=== PATIENT | female | born 1955 | race Caucasian/White ===

== ENCOUNTER 2019-10-27 12:47 | Outpatient (REF) | payer OTHER, SELFPAY ==
[2019-10-27 22:07] LABS: Anion Gap 7.1 mmol/L (3-11); BUN 22 mg/dL (7-18); CO2 29.9 mmol/L (21.0-32.0); CREATININE 1.36 mg/dL (0.55-1.02); Calcium 8.9 mg/dL (8.5-10.1); Chloride 102 mmol/L (98-107); Estimated GFR 39.15 (mL/min/1.73m2); Glucose 129 mg/dL (74-106); Potassium 4.4 mmol/L (3.5-5.1); Sodium 139 mmol/L (136-145); TSH (W/Ref FT4) 2.35 uIU/mL (0.36-3.74)
[2019-10-27 22:21] LABS: COMMENT (LAB VIEW ONLY) 239.72 mg/dL; Microalb ug/mg Crea 4.2 ug/mg Cr
== END 2019-10-27 13:07 ==
LOC: NCHCN 12:47
PROVIDERS: Visit Provider Nurse Practitioner Community Health
DX: Z00.00 Encounter for general adult medical examination without abnormal findings (principal); E11.9 Type 2 diabetes mellitus without complications; N18.9 Chronic kidney disease, unspecified; Z13.29 Encounter for screening for other suspected endocrine disorder; M25.561 Pain in right knee
CPT/HCPCS: 80048; 82043; 82570; 84443

== ENCOUNTER 2020-05-29 22:54 | Outpatient (REF) | payer MEDICARE, BC, SELFPAY ==
[2020-05-29 22:37] LABS: BUN 21 mg/dL (7-18); CREATININE 1.55 mg/dL (0.55-1.02); Calcium 9.3 mg/dL (8.5-10.1); Chloride 102 mmol/L (98-107); Estimated GFR 33.56 (mL/min/1.73m2); Glucose 97 mg/dL (74-106); Potassium 4.6 mmol/L (3.5-5.1); Sodium 139 mmol/L (136-145); TSH 0.92 uIU/mL (0.36-3.74)
== END 2020-05-29 23:14 ==
LOC: NCHCN 22:54
PROVIDERS: PCP Nurse Practitioner Community Health; Visit Provider Nurse Practitioner Community Health
DX: R00.2 Palpitations (principal)
CPT/HCPCS: 80048; 84443

== ENCOUNTER 2020-08-08 12:24 | Outpatient (REF) | payer MEDICARE, BC, SELFPAY ==
[2020-08-08 13:19] LABS: HCT 38.5 % (36.0-46.0); MCH 24.7 pg (27.0-33.0); MCHC 31.2 % (32.0-36.0); MCV 79.4 fL (80-95); MPV 9.7 fL (8.0-11.0); Platelet Count 471 10^3/uL (130-400); RBC 4.85 10^6/uL (3.93-5.22); RDW 15.5 % (11.7-14.6); RDW-SD 44.1 fL; WBC 9.71 10^3/uL (4.4-10.8)
[2020-08-08 13:26] LABS: Anion Gap 11.9 mmol/L (3-11); BUN 18 mg/dL (7-18); CO2 27.1 mmol/L (21.0-32.0); CREATININE 1.4 mg/dL (0.55-1.02); Calcium 9.6 mg/dL (8.5-10.1); Chloride 104 mmol/L (98-107); Estimated GFR 37.74 (mL/min/1.73m2); Glucose 133 mg/dL (74-106); Potassium 4.3 mmol/L (3.5-5.1); Sodium 143 mmol/L (136-145)
[2020-08-08 14:52] LABS: Ferritin 16 ng/mL (8-252)
== END 2020-08-08 12:25 | disposition home or self-care (01) ==
LOC: NCHCN 12:24
PROVIDERS: PCP Nurse Practitioner Community Health; Visit Provider Nurse Practitioner Community Health
DX: I10 Essential (primary) hypertension (principal); E11.9 Type 2 diabetes mellitus without complications; N18.9 Chronic kidney disease, unspecified; D75.9 Disease of blood and blood-forming organs, unspecified; E66.01 Morbid (severe) obesity due to excess calories
CPT/HCPCS: 80048; 85027; 82728; 83036

== ENCOUNTER 2020-11-06 12:15 | Outpatient (REF) | payer MEDICARE, BC, SELFPAY ==
[2020-11-06 13:58] LABS: COMMENT (LAB VIEW ONLY) 325.48 mg/dL; Microalb ug/mg Crea 4.1 ug/mg Cr
== END 2020-11-06 12:16 | disposition home or self-care (01) ==
LOC: NCHCN 12:15
PROVIDERS: PCP Nurse Practitioner Community Health; Visit Provider Nurse Practitioner Community Health
DX: E11.9 Type 2 diabetes mellitus without complications (principal)
CPT/HCPCS: 82043; 82570

== ENCOUNTER 2021-03-19 17:16 | Outpatient (REF) | payer MEDICARE, BC, SELFPAY ==
[2021-03-19 17:26] LABS: Anion Gap 7.7 mmol/L (3-11); BUN 21 mg/dL (7-18); CO2 30.3 mmol/L (21.0-32.0); CREATININE 1.4 mg/dL (0.55-1.02); Chloride 104 mmol/L (98-107); Estimated GFR 37.74 (mL/min/1.73m2); Glucose 131 mg/dL (74-106); Potassium 4.8 mmol/L (3.5-5.1); Sodium 142 mmol/L (136-145)
== END 2021-03-19 17:17 | disposition home or self-care (01) ==
LOC: NCHCN 17:16
PROVIDERS: PCP Nurse Practitioner Community Health; Visit Provider Nurse Practitioner Community Health
DX: N18.9 Chronic kidney disease, unspecified (principal); I10 Essential (primary) hypertension; E11.9 Type 2 diabetes mellitus without complications; E66.01 Morbid (severe) obesity due to excess calories
CPT/HCPCS: 80048

== ENCOUNTER 2021-10-22 19:35 | Outpatient (REF) | payer MEDICARE, BC, SELFPAY ==
[2021-10-22 21:37] LABS: Hemoglobin A1C 7.4 % (<5.7)
[2021-10-22 21:43] LABS: Anion Gap 7.6 mmol/L (3-11); BUN 17 mg/dL (7-18); CO2 29.4 mmol/L (21.0-32.0); CREATININE 1.4 mg/dL (0.55-1.02); Chloride 103 mmol/L (98-107); Estimated GFR 37.62 (mL/min/1.73m2); Glucose 150 mg/dL (74-106); Potassium 4.2 mmol/L (3.5-5.1); Sodium 140 mmol/L (136-145); TSH 1.63 uIU/mL (0.36-3.74)
== END 2021-10-22 19:36 | disposition home or self-care (01) ==
LOC: NCHCN 19:35
PROVIDERS: PCP Nurse Practitioner Community Health; Visit Provider Nurse Practitioner Family
DX: E11.9 Type 2 diabetes mellitus without complications (principal); I10 Essential (primary) hypertension; E03.9 Hypothyroidism, unspecified; E66.01 Morbid (severe) obesity due to excess calories
CPT/HCPCS: 80048; 83036; 84443

== ENCOUNTER 2021-10-29 13:27 | Outpatient (REF) | payer MEDICARE, BC, SELFPAY ==
[2021-10-29 22:23] LABS: COMMENT (LAB VIEW ONLY) 221.24 mg/dL; Microalb ug/mg Crea 6.4 ug/mg Cr
== END 2021-10-29 13:28 | disposition home or self-care (01) ==
LOC: NCHCN 13:27
PROVIDERS: PCP Nurse Practitioner Community Health; Visit Provider Nurse Practitioner Family
DX: E11.9 Type 2 diabetes mellitus without complications (principal)
CPT/HCPCS: 82043; 82570

== ENCOUNTER 2022-01-20 16:29 | Outpatient (REF) | payer MEDICARE, BC, SELFPAY ==
[2022-01-20 15:24] LABS: Anion Gap 10.4 mmol/L (3-11); BUN 32 mg/dL (7-18); CO2 24.6 mmol/L (21.0-32.0); CREATININE 1.8 mg/dL (0.55-1.02); Calcium 9.1 mg/dL (8.5-10.1); Chloride 103 mmol/L (98-107); Estimated GFR 28.15 (mL/min/1.73m2); Glucose 105 mg/dL (74-106); Potassium 4.3 mmol/L (3.5-5.1); Sodium 138 mmol/L (136-145)
[2022-01-20 16:03] LABS: Hemoglobin A1C 6.8 % (<5.7)
== END 2022-01-20 16:30 | disposition home or self-care (01) ==
LOC: NCHCN 16:29
PROVIDERS: PCP Nurse Practitioner Community Health; Visit Provider Nurse Practitioner Family
DX: E11.9 Type 2 diabetes mellitus without complications (principal)
CPT/HCPCS: 80048; 83036

== ENCOUNTER 2022-01-27 14:43 | Outpatient (REF) | payer MEDICARE, BC, SELFPAY ==
[2022-01-27 17:18] LABS: Anion Gap 11.9 mmol/L (3-11); BUN 41 mg/dL (7-18); CO2 23.1 mmol/L (21.0-32.0); CREATININE 2.4 mg/dL (0.55-1.02); Calcium 9.4 mg/dL (8.5-10.1); Calculated LDL 37 mg/dL (<100); Chloride 101 mmol/L (98-107); Cholesterol 103 mg/dL (<200); Glucose 147 mg/dL (74-106); HDL Cholesterol 36 mg/dL (40-60); Potassium 4.4 mmol/L (3.5-5.1); Sodium 136 mmol/L (136-145); Triglyceride 151 mg/dL (<150)
== END 2022-01-27 14:44 | disposition home or self-care (01) ==
LOC: NCHCN 14:43
PROVIDERS: PCP Nurse Practitioner Community Health; Visit Provider Nurse Practitioner Family
DX: I10 Essential (primary) hypertension (principal)
CPT/HCPCS: 80048; 80061

== ENCOUNTER 2022-02-02 19:17 | Outpatient (REF) | payer MEDICARE, BC, SELFPAY ==
[2022-02-02 21:00] LABS: BUN 25 mg/dL (7-18); CREATININE 1.6 mg/dL (0.55-1.02); Calcium 9.1 mg/dL (8.5-10.1); Chloride 105 mmol/L (98-107); Estimated GFR 32.25 (mL/min/1.73m2); Glucose 124 mg/dL (74-106); Potassium 4.8 mmol/L (3.5-5.1); Sodium 139 mmol/L (136-145)
== END 2022-02-02 19:18 | disposition home or self-care (01) ==
LOC: NCHCN 19:17
PROVIDERS: PCP Nurse Practitioner Community Health; Visit Provider Nurse Practitioner Family
DX: N18.9 Chronic kidney disease, unspecified (principal)
CPT/HCPCS: 80048

== ENCOUNTER 2022-06-10 14:36 | Outpatient (REF) | payer MEDICARE, BC, SELFPAY ==
[2022-06-10 14:29] LABS: Anion Gap 7.9 mmol/L (3-11); BUN 16 mg/dL (7-18); CO2 27.1 mmol/L (21.0-32.0); CREATININE 1.2 mg/dL (0.55-1.02); Calcium 8.7 mg/dL (8.5-10.1); Chloride 105 mmol/L (98-107); Estimated GFR 49.61 (mL/min/1.73m2); Glucose 93 mg/dL (74-106); Potassium 4.5 mmol/L (3.5-5.1); Sodium 140 mmol/L (136-145)
== END 2022-06-10 14:37 | disposition home or self-care (01) ==
LOC: NCHCN 14:36
PROVIDERS: PCP Nurse Practitioner Community Health; Visit Provider Nurse Practitioner Family
DX: I10 Essential (primary) hypertension (principal)
CPT/HCPCS: 80048

== ENCOUNTER 2022-10-30 16:09 | Outpatient (REF) | payer MEDICARE, BC, SELFPAY ==
[2022-10-30 21:06] LABS: Bacteria Many HPF (Negative); C & S Indicated? C&S Done As Ordered; Casts Negative LPF (Negative); Crystals Negative HPF (Negative); Epithelial Cells Few HPF (Negative); Mucus Negative (Negative)
== END 2022-10-30 16:10 | disposition home or self-care (01) ==
LOC: NCHCN 16:09
PROVIDERS: PCP Nurse Practitioner Community Health; Visit Provider Internal Medicine
DX: R30.0 Dysuria (principal)
CPT/HCPCS: 87077; 81015; 87086; 87186

== ENCOUNTER 2022-11-24 13:06 | Outpatient (REF) | payer MEDICARE, BC, SELFPAY ==
[2022-11-24 16:24] LABS: COMMENT (LAB VIEW ONLY) 158.62 mg/dL; Microalb ug/mg Crea 3.7 ug/mg Cr
== END 2022-11-24 13:07 | disposition home or self-care (01) ==
LOC: NCHCN 13:06
PROVIDERS: PCP Nurse Practitioner Community Health; Visit Provider Nurse Practitioner Family
DX: E11.9 Type 2 diabetes mellitus without complications (principal)
CPT/HCPCS: 82043; 82570

== ENCOUNTER 2023-05-19 11:32 | Outpatient (REF) | payer MEDICARE, BC, SELFPAY ==
[2023-05-19 14:44] LABS: Hemoglobin A1C 5.9 % (<5.7)
[2023-05-19 15:01] LABS: ALT 44 U/L (14-59); AST 18 U/L (15-37); Alkaline Phosphatase 103 U/L (46-116); Anion Gap 4.7 mmol/L (3-11); BUN 31 mg/dL (7-18); Bilirubin, Total 0.3 mg/dL (0.2-1.0); CO2 26.3 mmol/L (21.0-32.0); CREATININE 1.6 mg/dL (0.55-1.02); Calcium 9.2 mg/dL (8.5-10.1); Chloride 106 mmol/L (98-107); Estimated GFR 35.13 (mL/min/1.73m2); Glucose 110 mg/dL (74-106); Potassium 4.3 mmol/L (3.5-5.1); Sodium 137 mmol/L (136-145); TSH 0.09 uIU/mL (0.36-3.74); Total Protein 6.8 g/dL (6.4-8.2); Vitamin B12 454 pg/mL (193-986)
== END 2023-05-19 11:33 | disposition home or self-care (01) ==
LOC: NCHCN 11:32
PROVIDERS: PCP Nurse Practitioner Community Health; Visit Provider Nurse Practitioner Family
DX: E11.9 Type 2 diabetes mellitus without complications (principal); E03.9 Hypothyroidism, unspecified; Z51.81 Encounter for therapeutic drug level monitoring
CPT/HCPCS: 80053; 82607; 83036; 83735; 84443

== ENCOUNTER 2023-05-24 16:05 | Outpatient (REF) | payer MEDICARE, BC, SELFPAY ==
[2023-05-24 15:10] LABS: COMMENT (LAB VIEW ONLY) 151.81 mg/dL; Microalb ug/mg Crea 4.4 ug/mg Cr
== END 2023-05-24 16:06 | disposition home or self-care (01) ==
LOC: NCHCN 16:05
PROVIDERS: PCP Nurse Practitioner Community Health; Visit Provider Nurse Practitioner Family
DX: E11.9 Type 2 diabetes mellitus without complications (principal)
CPT/HCPCS: 82043; 82570

== ENCOUNTER 2023-06-30 11:14 | Outpatient (REF) | payer MEDICARE, SELFPAY ==
[2023-06-30 16:06] LABS: Anion Gap 6.5 mmol/L (3-11); BUN 25 mg/dL (7-18); CO2 27.5 mmol/L (21.0-32.0); CREATININE 1.7 mg/dL (0.55-1.02); Calcium 9.3 mg/dL (8.5-10.1); Chloride 103 mmol/L (98-107); Estimated GFR 32.46 (mL/min/1.73m2); Glucose 108 mg/dL (74-106); Potassium 4.4 mmol/L (3.5-5.1); Sodium 137 mmol/L (136-145); TSH (W/Ref FT4) 2.98 uIU/mL (0.36-3.74)
== END 2023-06-30 11:15 | disposition home or self-care (01) ==
LOC: NCHCN 11:14
PROVIDERS: PCP Nurse Practitioner Community Health; Visit Provider Nurse Practitioner Family
DX: E03.9 Hypothyroidism, unspecified (principal); N18.9 Chronic kidney disease, unspecified
CPT/HCPCS: 80048; 84443

== ENCOUNTER 2023-12-07 15:37 | Outpatient (REF) | payer MEDICARE, SELFPAY ==
[2023-12-07 21:47] LABS: COMMENT (LAB VIEW ONLY) 95.61 mg/dL; Microalb ug/mg Crea 5.3 ug/mg Cr
== END 2023-12-07 15:38 | disposition home or self-care (01) ==
LOC: NCHCN 15:37
PROVIDERS: PCP Nurse Practitioner Community Health; Visit Provider Nurse Practitioner Family
DX: E11.9 Type 2 diabetes mellitus without complications (principal)
CPT/HCPCS: 82043; 82570